=== PATIENT | male | born 1965 | race Caucasian/White ===

== ENCOUNTER 2016-12-23 10:11 | Emergency (ER) | payer OTHER ==
[~2016-12-23] VITALS: Ht 175.3 cm; Wt 106.4 kg
[~2016-12-23 10:11] MED LIST: LINA1TAB PO; LISI-729 PO; METF-384 PO; SIMV40TA2 PO
[2016-12-23 10:16] VITALS: TEMP 36.5; Ht 175.3 cm; Wt 106.4 kg
[2016-12-23 10:20] VITALS: O2SAT 98
[2016-12-23] MEDS ORDERED: SODIUM CHLORIDE 0.9% 1000ML 1,000 ML IV STA ×3 (10:23→12:25)
[2016-12-23] MEDS ORDERED: ONDANSETRON INJ 2 MG/ML 2 ML VIAL IV STA (10:23)
--- NOTE | 2016-12-23 10:31 | EMERGENCY ROOM VISIT NOTE ---
History First contact with patient: 10:16 Chief Complaint: CARDIAC ASSESSMENT Stated Complaint: DIZZY/NAUSEA/VOMITING/CHEST PAIN Nursing Triage Summary: pt arrived via ALS. pt was a passenger in a vehicle and developed sudden onset of dizziness, nausea and vomiting. after patient vomited patient developed left sided chest pain under breast. pt did not radiate. patient denies SOB. 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 hx diabetes. 4mg zofran given prehospital. History of Present Illness The patient is a 51 year old male who presents to the Emergency Room with complaints of dizziness, nausea, vomiting and diarrhea. The patient states that he was at work around 9 AM when he developed dizziness. He states the dizziness is worse with any movement. He states that he also feels lightheaded. He reports a very brief episode of chest pain that lasted less than 1 minute. He reports nausea, vomiting and diarrhea. He denies any shortness of breath or trouble breathing. He denies any abdominal pain. He denies any known sick contacts. He denies any fevers. He denies any earache, sore throat or cough. He denies any numbness, tingling or weakness in the extremities. He denies headache. He denies any history of vertigo. He does have a history of diabetes and hyperlipidemia. Review of Systems A 10 system review of systems was completed with positives and pertinent negatives listed in the HPI. Past Medical/Surgical History Medical Problems: (1) Diabetes (2) Hyperlipidemia Social History Smoking Status: Never Smoker Housing Status: lives with family Occupation Status: employed Current/Historical Medications Scheduled Linagliptin (Tradjenta), 5 MG PO DAILY Lisinopril (Zestril), 5 MG PO DAILY Metformin Hcl (Glucophage), 1,000 MG PO BID Simvastatin (Zocor), 40 MG PO QPM Allergies Coded Allergies: No Known Allergies (Verified , 12/23/16) Physical Exam Vital Signs Date Time Temp Pulse Resp B/P (MAP) Pulse Ox O2 Delivery O2 Flow Rate FiO2 12/23/16 14:00 72 22 132/66 96 12/23/16 13:07 66 12/23/16 13:00 75 18 131/75 96 Room Air 12/23/16 11:56 70 22 124/78 97 69 147/77 73 134/72 12/23/16 11:25 75 22 136/76 94 Room Air 12/23/16 10:43 73 18 129/79 94 Room Air 66 144/81 67 116/74 12/23/16 10:21 69 12/23/16 10:20 98 Room Air 12/23/16 10:16 94 Room Air 12/23/16 10:16 36.5 70 22 134/74 94 Room Air Physical Exam VITALS: Vitals are noted on the nurse's note and reviewed by myself. Vital signs stable. The patient is afebrile. He is not hypotensive. GENERAL: This is a 51-year-old male, in no acute distress, nondiaphoretic, well- developed well-nourished. SKIN: The skin was without rashes, erythema, edema, or bruising. There is no tenting of the skin. Capillary reflex less than 2 seconds. HEAD: Normocephalic atraumatic. EARS: External auditory canals clear, tympanic membranes pearly pihcardo without erythema or effusion bilaterally. EYES: Pupils equal round and reactive to light and accommodation. Conjunctivae without injection, sclerae without icterus. Extraocular movements intact. NOSE: Patent, turbinates without inflammation or discharge. No sinus tenderness. MOUTH: Mucous membranes moist. Tonsils are not enlarged. Pharynx without erythema or exudate. Uvula midline. Airway patent. Tongue does not deviate. NECK: Supple without nuchal rigidity. No lymphadenopathy. No thyromegaly. Cervical spine is nontender. No JVD. HEART: Regular rate and rhythm without murmurs gallops or rubs. LUNGS: Clear to auscultation bilaterally without wheezes, rales or rhonchi. No retractions or accessory muscle use. ABDOMEN: Positive bowel sounds x 4. Soft, nontender, without masses or organomegaly. MUSCULOSKELETAL: No muscle atrophy, erythema, or edema noted. Full range of motion in all extremities. Strength 5/5 throughout. NEURO: Patient was alert and oriented to person place and time. Cranial nerves II through XII grossly intact. Negative pronator drift. Heel elmore testing intact. No focal neurological deficits. Medical Decision & Procedures ER Provider Diagnostic Interpretation: CHEST ONE VIEW PORTABLE CLINICAL HISTORY: chest pain, dizziness dyspnea COMPARISON STUDY: No previous studies for comparison. FINDINGS: The bones soft tissues and hemidiaphragms are normal. The cardiomediastinal silhouette is normal. The lungs are clear. The pulmonary vasculature is normal. IMPRESSION: Negative chest. Laboratory Results 12/23/16 10:40 Red Blood Count 4.97, Mean Corpuscular Volume 85.5, Mean Corpuscular Hemoglobin 29.0, Mean Corpuscular Hemoglobin Concent 33.9, Mean Platelet Volume 10.6, Neutrophils (%) (Auto) 78.1, Lymphocytes (%) (Auto) 14.6, Monocytes (%) (Auto) 6.1, Eosinophils (%) (Auto) 0.4, Basophils (%) (Auto) 0.2, Neutrophils # (Auto) 7.34, Lymphocytes # (Auto) 1.37, Monocytes # (Auto) 0.57, Eosinophils # (Auto) 0.04, Basophils # (Auto) 0.02 12/23/16 10:40 Test 12/23/16 10:19 12/23/16 10:40 12/23/16 12:55 Bedside Glucose 217 mg/dl (70-99) White Blood Count 9.40 K/uL (4.8-10.8) Red Blood Count 4.97 M/uL (4.7-6.1) Hemoglobin 14.4 g/dL (14.0-18.0) Hematocrit 42.5 % (42-52) Mean Corpuscular Volume 85.5 fL (80-100) Mean Corpuscular Hemoglobin 29.0 pg (25-34) Mean Corpuscular Hemoglobin Concent 33.9 g/dl (32-36) Platelet Count 200 K/uL (130-400) Mean Platelet Volume 10.6 fL (7.4-10.4) Neutrophils (%) (Auto) 78.1 % Lymphocytes (%) (Auto) 14.6 % Monocytes (%) (Auto) 6.1 % Eosinophils (%) (Auto) 0.4 % Basophils (%) (Auto) 0.2 % Neutrophils # (Auto) 7.34 K/uL (1.4-6.5) Lymphocytes # (Auto) 1.37 K/uL (1.2-3.4) Monocytes # (Auto) 0.57 K/uL (0.11-0.59) Eosinophils # (Auto) 0.04 K/uL (0-0.5) Basophils # (Auto) 0.02 K/uL (0-0.2) RDW Standard Deviation 37.3 fL (36.4-46.3) RDW Coefficient of Variation 12.0 % (11.5-14.5) Immature Granulocyte % (Auto) 0.6 % Immature Granulocyte # (Auto) 0.06 K/uL (0.00-0.02) Prothrombin Time 10.8 SECONDS (9.0-12.0) Prothromb Time International Ratio 1.0 (0.9-1.1) Activated Partial Thromboplast Time 23.8 SECONDS (21.0-31.0) Partial Thromboplastin Ratio 0.9 Anion Gap 12.0 mmol/L (3-11) Est Creatinine Clear Calc Drug Dose 85.6 ml/min Estimated GFR () 79.5 Estimated GFR (Non- 68.6 BUN/Creatinine Ratio 14.3 (10-20) Calcium Level 8.9 mg/dl (8.5-10.1) Magnesium Level 1.9 mg/dl (1.8-2.4) Total Bilirubin 0.5 mg/dl (0.2-1) Aspartate Amino Transf (AST/SGOT) 21 U/L (15-37) Alanine Aminotransferase (ALT/SGPT) 48 U/L (12-78) Alkaline Phosphatase 65 U/L (45-117) Troponin I < 0.015 ng/ml (0-0.045) Total Protein 7.7 gm/dl (6.4-8.2) Albumin 4.0 gm/dl (3.4-5.0) Globulin 3.7 gm/dl (2.5-4.0) Albumin/Globulin Ratio 1.1 (0.9-2) Lipase 101 U/L (73-393) Urine Color YELLOW Urine Appearance CLEAR (CLEAR) Urine pH 5.0 (4.5-7.5) Urine Specific [place] 1.017 (1.000-1.030) Urine Protein NEG (NEG) Urine Glucose (UA) 1+ (NEG) Urine Ketones NEG (NEG) Urine Occult Blood NEG (NEG) Urine Nitrite NEG (NEG) Urine Bilirubin NEG (NEG) Urine Urobilinogen NEG (NEG) Urine Leukocyte Esterase NEG (NEG) Medications Administered Medications (Trade) Dose Ordered Sig/Ashvin Route Start Time Stop Time Status Last Admin Dose Admin Sodium Chloride 1,000 ml @ 999 mls/hr Q1H1M STAT IV 12/23/16 10:23 12/23/16 11:23 DC 12/23/16 10:44 999 MLS/HR Ondansetron HCl (Zofran Inj) 4 mg NOW STAT IV 12/23/16 10:23 12/23/16 10:26 DC 12/23/16 10:44 4 MG Sodium Chloride 1,000 ml @ 999 mls/hr Q1H1M STAT IV 12/23/16 11:19 12/23/16 12:19 DC 12/23/16 11:24 999 MLS/HR Sodium Chloride 1,000 ml @ 999 mls/hr Q1H1M STAT IV 12/23/16 12:25 12/23/16 13:25 DC 12/23/16 12:25 999 MLS/HR Procedure The patient was monitored on a court recording monitor. They maintained a normal sinus rhythm without ectopy. ECG Indication: vomiting Rate (beats per minute): 65 Rhythm: normal sinus Findings: no acute ischemic change Change: no significant change ED Course The patient was seen and examined. Previous visits were reviewed. He does not have a fever or leukocytosis. He does not have any significant electrolyte abnormalities. Troponin was not elevated. His glucose was 210. He does have a history of diabetes. Lipase was not elevated. INR was 1.0. Urinalysis was negative. Chest x-ray does not reveal any obvious abnormality The patient was hydrated with normal saline 3 L The patient presents to the emergency department with dizziness, nausea and vomiting. The patient had positive orthostatic vital signs. He is not anemic and has had no complaints of hematemesis, melena or hematochezia to suggest blood loss as a cause for the orthostasis. I suspect that this represents dehydration. The patient was hydrated with 2 L of normal saline and the orthostatic vital signs were repeated and were significantly improved. The patient was still not able to urinate and was given an additional 1 L of normal saline IV. After this, the patient was feeling significantly better. His dizziness had completely resolved. He did not have any recurrence or persistent chest pain. He does not have any shortness of breath. He does not appear to be toxic and has no fever. He should return to the emergency Department with any worsening symptoms. The case was discussed with Dr. Eckert who agrees with the assessment and treatment plan. Medical Decision DIFFERENTIAL DIAGNOSIS: Aortic dissection, myocarditis, pericarditis, cervical disc disease, costochondritis, herpes zoster, rib fracture, pleuritis, pneumonia , pulmonary embolus, tension pneumothorax, anxiety disorder, somatoform disorder , choledocholithiasis, status, esophagitis, esophageal spasm, esophageal reflux , esophageal rupture, pancreatitis, peptic ulcer disease, cardiac ischemia, ST elevation NC, acute coronary syndrome, arrhythmia, coronary artery vasospasm. vavular heart disease, coronary artery disease, among others. Impression Primary Impression: Dehydration Additional Impressions: Dizziness Orthostatic dizziness Chest pain Departure Information Dispostion Home / Self-Care Condition GOOD Referrals Lb Hopper M.D. (PCP) Patient Instructions ED Dehydration, My [facility] Additional Instructions Rest Increase clear fluids Return with worsening symptoms Otherwise, follow up with your family doctor next week for recheck Problem Qualifiers Additional Impressions:
--- NOTE | 2016-12-23 10:43 | DIAGNOSTIC IMAGING REPORT ---
CHEST ONE VIEW PORTABLE CLINICAL HISTORY: chest pain, dizziness dyspnea COMPARISON STUDY: No previous studies for comparison. FINDINGS: The bones soft tissues and hemidiaphragms are normal. The cardiomediastinal silhouette is normal. The lungs are clear. The pulmonary vasculature is normal. IMPRESSION: Negative chest. Electronically signed by: George Dubois M.D. 12/23/2016 10:41 AM Dictated Date/Time: 12/23/2016 10:41 AM
[2016-12-23 10:53] LABS: BASO % 0.2 %; BASO ABS # 0.02 K/uL (0-0.2); COMPLETE YES; EOS % 0.4 %; HEMATOCRIT 42.5 % (42-52); IG% 0.6 %; LYMPH % 14.6 %; LYMPH ABS # 1.37 K/uL (1.2-3.4); MEAN CELL VOLUME 85.5 fL (80-100); MEAN CORPUSCULAR HGB CONC 33.9 g/dl (32-36); MEAN PLATELET VOLUME 10.6 fL (7.4-10.4); MONO % 6.1 %; NEUT % 78.1 %; PLATELET COUNT 200 K/uL (130-400); RED BLOOD COUNT 4.97 M/uL (4.7-6.1)
[2016-12-23 11:01] LABS: PARTIAL THROMBOPLASTIN RATIO 0.9; PROTHROMBIN TIME (PATIENT) 10.8 SECONDS (9.0-12.0)
[2016-12-23 11:16] LABS: ALT/SGPT 48 U/L (12-78); BLOOD UREA NITROGEN 17 mg/dl (7-18); BUN/CREATININE RATIO 14.3 (10-20); CARBON DIOXIDE 21 mmol/L (21-32); CHLORIDE 102 mmol/L (98-107); GLUCOSE 210 mg/dl (70-99); MAGNESIUM 1.9 mg/dl (1.8-2.4); POTASSIUM 3.7 mmol/L (3.5-5.1); SODIUM 135 mmol/L (136-145)
[2016-12-23 11:18] LABS: CALCIUM 8.9 mg/dl (8.5-10.1)
[2016-12-23 11:20] LABS: ALB/GLOB RATIO 1.1 (0.9-2); ALKALINE PHOSPHATASE 65 U/L (45-117); AST/SGOT 21 U/L (15-37)
[2016-12-23 13:09] LABS: URINE APPEARANCE CLEAR (CLEAR); URINE BILIRUBIN NEG (NEG); URINE COLOR YELLOW; URINE NITRITE NEG (NEG); URINE SPECIFIC GRAVITY 1.017 (1.000-1.030); UROBILINOGEN NEG (NEG); ZZUR CULT IF INDIC CLEAN CATCH NO
[2016-12-23 13:19] LABS: MANUAL MICROSCOPIC REQUIRED? NO; REVIEW REQ? NO
[2016-12-23 14:00] VITALS: BP 132/66; PULSE 72; O2SAT 96
== END 2016-12-23 14:05 | disposition home or self-care (01) ==
LOC: EDBD 10:11 → C.EDA 10:13
DX: E86.0 Dehydration (principal); R42 Dizziness and giddiness; R07.9 Chest pain, unspecified; E11.9 Type 2 diabetes mellitus without complications; E78.5 Hyperlipidemia, unspecified; Z79.899 Other long term (current) drug therapy